=== PATIENT | male | born 2000 | race Caucasian/White ===

== ENCOUNTER 2023-03-10 09:47 | Emergency (ER) | payer MEDICAID ==
[2023-03-10 10:12] VITALS: BP 131/85
--- NOTE | 2023-03-10 10:22 | ED Physician Documentation ---
PD HPI OPHTHO - Stated complaint Stated Complaint: EYE INJ - Chief complaint Chief Complaint: Heent - History obtained from History obtained from: Patient - History of Present Illness Timing - onset: Last night Timing - details: Abrupt onset, Still present (he was playing with propr light saber with friends and was struck in right eyelid/eye area. He states eye blurred initially with injury then cleared. Brisuing of upper eyelid, faint bleeding from eyelid. Awoke this morning and still with feeling eye irritation. Vision is clear today.) Location: Right Quality / character: Aching Associated symptoms: Swelling (right upper lateral eyelid.), FB sensation, Decreased vision (right after injury but is clear now.). No: Redness, Photophobia, Headache Contributing factors: No: Wears contacts Similar symptoms before: Has not had sx before Review of Systems Eyes: reports: Irritation. denies: Photophobia, Discharge PD PAST MEDICAL HISTORY - Past Medical History Past Medical History: No - Past Surgical History Past Surgical History: No - Present Medications Home Medications: Ambulatory Orders Medication Instructions Recorded Confirmed No Known Home Medications 10/04/16 03/10/23 - Allergies Allergies/Adverse Reactions: Allergies Allergy/AdvReac Type Severity Reaction Status Date / Time whooping cough vaccine Allergy Unknown Uncoded 10/04/16 11:33 - Social History Does the pt smoke?: No Smoking Status: Never smoker Does the pt drink ETOH?: No Does the pt have substance abuse?: No PD ED PE NORMAL - Vitals Vital signs reviewed: Yes - General General: Alert and oriented X 3, No acute distress, Well developed/nourished - HEENT HEENT: PERRL, EOMI (no direct nor consensual light sensitivity. Has normal reactivity. Anterior and posterior chambers are clear. ) PD ED PE EXPANDED - Eyes Eyes: Right eye, Eyelid injury (bruising. No laceration noted.), Eyelid swelling, Corneal abrasion (9 oclock to iris. small 2-3 mm linear. ), Fluorescein uptake, Anterior chambers clear, Normal fundi. No: Conj/sclera FB, Corneal FB, Corneal ulcer, Hyphema Results - Vitals Vitals: Vital Signs - 24 hr 03/10/23 10:04 Temperature 36.3 C L Heart Rate 63 Respiratory 18 Rate Blood Pressure 131/85 H O2 Saturation 100 Oxygen O2 Source Room air PD Medical Decision Making - ED course Complexity details: considered differential (has eyelid bruising. I don't see a lac per se, but abrasion at lid margin, presume was the faint bleeding. Superficial abrasion of eye. no FB. Chambers are clear. ), d/w patient Departure - Departure Disposition: 01 Home, Self Care Clinical Impression: Corneal abrasion Qualifiers: Encounter type: initial encounter Laterality: right Qualified Code(s): S05.01XA - Injury of conjunctiva and corneal abrasion without foreign body, right eye, initial encounter Contusion, eyelid Qualifiers: Encounter type: initial encounter Laterality: right Qualified Code(s): S00.11XA - Contusion of right eyelid and periocular area, initial encounter Subconjunctival hemorrhage Qualifiers: Laterality: right Qualified Code(s): H11.31 - Conjunctival hemorrhage, right eye Condition: Stable Record reviewed to determine appropriate education?: Yes Instructions: ED Eye Injury Corneal Abrasion Comments: This should heal up okay with just time. You can use some moisturizing or lubricating eyedrops such as artificial tears or Lacri-Lube etc. (or these are available [id number]). These are not required for healing but may make it feel more comfortable. Tylenol or ibuprofen if needed for pains. The abrasion on the surface of the eye as well as the bruising of the eyelid and surface of the eyes should resolve without any problems. Recheck if any signs of infection develops. The inner parts of the eye appear normal. Discharge Date/Time: 03/10/23 11:15
[2023-03-10] MEDS ORDERED: IBUPROFEN 600 MG TABLET PO STA (10:56)
== END 2023-03-10 11:15 | disposition home or self-care (01) ==
LOC: ED 09:47
DX: S05.01XA Injury of conjunctiva and corneal abrasion without foreign body, right eye, initial encounter (principal); H11.31 Conjunctival hemorrhage, right eye; W20.8XXA Other cause of strike by thrown, projected or falling object, initial encounter; Y93.89 Activity, other specified
CPT/HCPCS: 99282; 99283; A9270